=== PATIENT | male | born 1955 | race Caucasian/White ===

== ENCOUNTER 2021-05-08 05:31 | Observation (INO) | payer MEDICARE, SELFPAY ==
[2021-05-08] VITALS (17 sets, daily range): BP systolic 129–190; BP diastolic 74–165; PULSE 83–108; RESP 14–23; TEMP 36.4–37.1; O2SAT 94–100; BMI 31.1
--- NOTE | ~2021-05-08 | XR_ITS ---
EXAMINATION: XR femur LT min 2V DATE: 05/08/2021 18:49 INDICATION: Left thigh pain. TECHNIQUE: 2 views of left femur on 4 radiographs were obtained. COMPARISON: CT abdomen and pelvis 05/08/2021 FINDINGS: Bone alignment is normal. No fracture. There are changes of posterior fusion procedure in l umbosacral spine. There is mild left hip osteoarthritis. Left knee joint space is normal. No left kne e joint effusion. Partially visualized is a left internal ureteral stent. IMPRESSION: 1. Mild left hip osteoarthritis. Reviewed, dictated and finalized at location A.
--- NOTE | ~2021-05-08 | XR_ITS ---
EXAMINATION: XR retrograde pyelo w/stent LT DATE: 05/08/2021 14:06 INDICATION: Left internal ureteral stent placement TECHNIQUE: Fluoroscopic images from a left internal ureteral stent placement are submitted for shivam wharton 19 seconds of fluoroscopy time. 7 fluoroscopic images. FINDINGS: There is a left double-J internal ureteral stent projecting in expected position, with proximal [place] loop at the level of the renal pelvis and distal loop in the pelvis within the bladder lumen. IMPRESSION: 1. Left internal ureteral stent placement. Please refer to real-time procedural findings for detail s. Reviewed, dictated and finalized at location A. IMPRESSION: 1. Left internal ureteral stent placement. Please refer to real-time procedur al findings for details.
--- NOTE | ~2021-05-08 | CT_ITS ---
EXAMINATION: CT abdomen pelvis wo con DATE: 05/08/2021 06:56 INDICATION: Flank pain TECHNIQUE: Computed tomography (CT) of the abdomen and pelvis was performed without intravenous contr ast. The dose-length product was 724.00 mGy-cm. Automated exposure control and iterative reconstructi on technique were employed. COMPARISON: CT dated 04/24/2007. FINDINGS: There is dependent atelectasis in the right lung. No significant pleural or pericardial eff usion. Elevated right diaphragm. Heart size normal. Mild atherosclerosis. No lymphadenopathy. There i s a 6 mm left UPJ stone with mild hydronephrosis. Gallbladder is mildly distended. The liver, spleen, pancreas, adrenal glands are unremarkable. No right renal stones. Nonobstructive bowel gas pattern. There are bilateral fat-containing inguinal hernias. Colonic diverticulosis without evidence for dive rticulitis. No free air or free fluid. There is bladder wall thickening. There is enlarged prostate g land. There are surgical fusion changes of the lumbar spine. No acute osseous abnormality. IMPRESSION: 1. Left UPJ stone measuring 6 mm with mild hydronephrosis. 2: Bladder wall thickening which may be due to relative obstruction from enlarged prostate gland or c ystitis. Reviewed, dictated and finalized at location A. IMPRESSION: 1. Left UPJ stone measuring 6 mm with mild hydronephrosis. 2: Bladder wall thickening which may be due to relative obstruction from enlarg ed prostate gland or cystitis.
--- NOTE | ~2021-05-08 | XR_ITS ---
EXAMINATION: XR abdomen/kub 1V DATE: 05/08/2021 16:34 INDICATION: Left ureteral stone. TECHNIQUE: A supine view of the abdomen was obtained. COMPARISON: CT abdomen and pelvis 05/08/2021, abdomen radiograph 05/08/2021 FINDINGS: There are no dilated loops of bowel. There are phleboliths in the pelvis. There is a left i nternal ureteral stent in expected position. There are changes of anterior and posterior fusion proce dures in lumbosacral spine. A bone stimulator is noted. IMPRESSION: 1. Left internal ureteral stent in expected position. No visible urolithiasis. Reviewed, dictated and finalized at location A.
--- NOTE | ~2021-05-08 | XR_ITS ---
XR abdomen/kub 1V 05/08/2021 13:04 INDICATION: Left renal stone TECHNIQUE: KUB COMPARISON: CT dated 05/08/2021 FINDINGS: Bowel gas pattern is normal. There is no evidence of free air, mass, organomegaly, ascites or obstruction. There is a stone in the left upper abdomen, likely at the UPJ. There are surgical ch anges of the lower lumbar spine and pelvis, consistent with fusion. Spinal stimulator leads are prese nt. The bones appear intact. There is a large amount of retained fecal material in the colon. IMPRESSION: 1: Calcification in the left upper abdomen, likely UPJ stone.. Reviewed, dictated and finalized at location A.
--- NOTE | 2021-05-08 05:46 | ED.ABDPAIN ---
HPI - Abdominal Pain General Chief Complaint: Abdominal Pain <Octavio Mcleod MD - Last Filed: 05/08/21 15:54> Stated Complaint: left abd pain/flank pain <Octavio Mcleod MD - Last Filed: 05/08/21 15:54> Time Seen by Provider: 05/08/21 05:39 <Octavio Mcleod MD - Last Filed: 05/08/21 15:54> History of Present Illness HPI narrative: Left flank pain since yesterday. variable intensity. Associated with dry heaves. This is a new problem. Additioanlly c/o pain in the left thingh. No swelling, trauma, rash. <Octavio Mcleod MD - Last Filed: 05/08/21 15:54> Related Data Allergies/Adverse Reactions: Allergies Allergy/AdvReac Type Severity Reaction Status Date / Time No Known Allergies Allergy Unverified 05/08/21 05:35 <Octavio Mcleod MD - Last Filed: 05/08/21 15:54> Review of Systems Review of Systems: All systems reviewed & are unremarkable except as noted in HPI and below <Octavio Mcleod MD - Last Filed: 05/08/21 15:54> Constitutional: Constitutional: Denies chills and Denies fever(s) <Octavio Mcleod MD - Last Filed: 05/08/21 15:54> ENT: Reports system reviewed and no additional complaints, except as documented <Octavio Mcleod MD - Last Filed: 05/08/21 15:54> Cardiovascular: Cardiovascular: Denies chest pain <Octavio Mcleod MD - Last Filed: 05/08/21 15:54> Respiratory: Respiratory: Denies dyspnea <Octavio Mcleod MD - Last Filed: 05/08/21 15:54> Gastrointestinal: Gastrointestinal: Reports as per HPI <Octavio Mcleod MD - Last Filed: 05/08/21 15:54> Genitourinary: Genitourinary: Denies hematuria and Denies dysuria <Octavio Mcleod MD - Last Filed: 05/08/21 15:54> Musculoskeletal: Musculoskeletal: Reports as per HPI <Octavio Mcleod MD - Last Filed: 05/08/21 15:54> Neurologic: Denies numbness and Denies weakness <Octavio Mcleod MD - Last Filed: 05/08/21 15:54> [facility] Past Medical History Medical History: Medical History (Updated 05/08/21 @ 11:00 by Ernie Avendano MD) Allergic rhinitis, unspecified Anxiety Elevated liver function tests Essential hypertension Gastroesophageal reflux disease without esophagitis Hypothyroidism, unspecified Lumbar radiculopathy Mild intermittent asthma without complication Mixed hyperlipidemia Neck pain, chronic <Octavio Mcleod MD - Last Filed: 05/08/21 15:54> Family History Family History: Family History Father Family history of coronary artery disease Mother Family history of coronary artery disease <Octavio Mcleod MD - Last Filed: 05/08/21 15:54> Social History Social History: Social History Smoking status: Former smoker Second hand tobacco smoke exposure: No Alcohol intake: current Substance use: never Substance use type: does not use Gender identity (if verbalized by the patient): Male Sexual Orientation (if Verbalized by the Patient): Straight or Heterosexual Spiritual care concerns: No Agree to blood products: No <Octavio Mcleod MD - Last Filed: 05/08/21 15:54> Exam Const: General: no acute distress and alert <Octavio Mcleod MD - Last Filed: 05/08/21 15:54> Orientation/consciousness: patient oriented x3 <Octavio Mcleod MD - Last Filed: 05/08/21 15:54> HENMT: Head: normal to inspection <Octavio Mcleod MD - Last Filed: 05/08/21 15:54> Neck: Neck: normal visual inspection <Octavio Mcleod MD - Last Filed: 05/08/21 15:54> Resp: Effort & Inspection: normal respiratory effort <Octavio Mcleod MD - Last Filed: 05/08/21 15:54> Auscultation: clear to auscultation bilaterally, no rales, no rhonchi and no wheezes <Octavio Mcleod MD - Last Filed: 05/08/21 15:54> Cardio: Jugular venous distension: no JVD <Octavio Mcleod MD - Last Filed: 05/08/21 15:54> Rate: regular
[2021-05-08 05:52] LABS: Basophils Absolute Auto 0.1 K/mm3 (0.0-0.1); Basophils Percent Auto 0.4 % (0.2-1.2); Eosinophils Absolute Auto 0.1 K/mm3 (0-0.3); Eosinophils Percent Auto 0.6 % (0-4.4); Hematocrit 44.5 % (42.0-52.0); Hemoglobin 14.5 g/dL (14.0-18.0); Immature Granulocyte Absolute 0.05 K/mm3 (0.00-0.031); Immature Granulocyte Percent A 0.4 % (0-0.5); Lymphocytes Absolute Auto 1.39 K/mm3 (0.9-3.2); Lymphocytes Percent Auto 11.4 % (18.3-44.2); Mean Corpuscular HGB Conc 32.6 g/dl (32-36); Mean Corpuscular Volume 91.9 fl (80-100); Mean Platelet Volume 9.2 fl (7.4-10.4); Monocytes Absolute Auto 0.4 K/mm3 (0.1-0.6); Monocytes Percent Auto 3.4 % (2.6-8.5); Neutrophils Absolute Auto 10.2 K/mm3 (1.3-6.7); Neutrophils Percent Auto 83.8 % (45.5-73.1); Platelet Count Result 216 k/mm3 (150-375); Red Blood Count 4.84 M/mm3 (4.6-6.20); Red Cell Distribution Width 12.6 % (11.5-14.5); White Blood Count 12.2 K/mm3 (4.5-10.0)
[2021-05-08 06:03] LABS: Anion Gap 10 mmol/L (8-16); Blood Urea Nitrogen 14 mg/dL (9-20); Calcium 9.6 mg/dL (8.4-10.2); Carbon Dioxide 25 mmol/L (22-30); Chloride 101 mmol/L (98-107); Estimated CRCL calculation 66 ml/min; Estimated Glomerular Filt Rate > 60; Glucose 139 mg/dL (65-110); Potassium 3.8 mmol/L (3.4-5.0); Sodium 136 mmol/L (137-145)
[2021-05-08] MEDS: fentaNYL CITRATE INJ (*CRX) 100 MCG/2 ML VIAL 50 MCG IV PUSH (06:59)
[2021-05-08] MEDS: ONDANSETRON INJ 4 MG/2 ML VIAL IV PUSH (06:59)
[2021-05-08] MEDS: MORPHINE SULFATE (*CRX) 4 MG/ML INJ IV PUSH (08:19)
[2021-05-08 08:27] LABS: Add Urine Microscopic? YES; Appearance Urine Cloudy (Clear); Bacteria Urine 2+ /hpf; Bilirubin Urine Negative (Negative); Blood Urine 3+ (Negative); Color Urine Amber (Yellow); Glucose Urine UA Negative (Negative); Ketones Urine Trace mg/dL (Negative); Leukocyte Esterase Ur Negative LEU/UL (Negative); Mucus Urine Heavy /lpf; Nitrate Urine Negative (Negative); Protein Urine 2+ mg/dL (Negative); RBC Urine >75 /hpf (0-2); Specific Grav Ur 1.021 (1.001-1.035)
[2021-05-08] MEDS: PROMETHAZINE HCL 25 MG/ML AMPUL 12.5 MG IV PUSH (10:04)
--- NOTE | 2021-05-08 12:53 | PM.IMHP ---
H&P: HPI History of Present Illness Date/Time: 05/08/21 12:53 Chief Complaint: Left flank pain Narrative: Mr. Haines is a pleasant 65M who presents to the [place] ER for evaluation of left-sided flank pain since last night associated with nausea and vomiting. He underwent CT abdomen and pelvis which demonstrated a 6mm obstructing left UPJ stone. He denies a history of nephrolithiasis. He denies hematuria or voiding symptoms. He reports some left leg pain which I have alerted the ER physician to. Review of Systems Review of Systems: All systems reviewed & are unremarkable except as noted in HPI and below Constitutional: Constitutional: Denies chills, Denies fever(s), Denies frequent falls and Denies headache(s) Eyes: Eyes: Reports as per HPI ENT: Reports system reviewed and no additional complaints, except as documented Cardiovascular: Cardiovascular: Reports no additional cardiovascular complaints Respiratory: Respiratory: Denies pain on inspiration, Denies pain with cough, Denies dyspnea and Denies wheezing Gastrointestinal: Gastrointestinal: Reports abdominal pain, Denies bloating, Denies change in stool character and Denies constipation Genitourinary: Genitourinary: Denies urinary frequency, Denies urinary incontinence and Denies urinary urgency Musculoskeletal: Musculoskeletal: Reports no additional musculoskeletal complaints Integumentary/Breasts: Skin/Breast: Reports system reviewed and no additional complaints, except as docu Neurologic: Reports system reviewed and no additional complaints, except as documented Psychiatric: Psychiatric: Reports no additional psychiatric complaints Endocrine: Endocrine: Reports no additional endocrine complaints Hematologic/Lymphatic: Hematologic/Lymphatic: Reports no additional hematologic/lymphatic complaints Allergic/Immunologic: Allergic/Immunologic: Reports no additional allergic/immunologic complaints [facility] Past Medical History Medical History (Updated 05/08/21 @ 11:00 by Ernie Avendano MD) Allergic rhinitis, unspecified Anxiety Elevated liver function tests Essential hypertension Gastroesophageal reflux disease without esophagitis Hypothyroidism, unspecified Lumbar radiculopathy Mild intermittent asthma without complication Mixed hyperlipidemia Neck pain, chronic Family History Family History Father Family history of coronary artery disease Mother Family history of coronary artery disease Social History Social History Smoking status: Former smoker Second hand tobacco smoke exposure: No Alcohol intake: current Substance use: never Substance use type: does not use Gender identity (if verbalized by the patient): Male Sexual Orientation (if Verbalized by the Patient): Straight or Heterosexual Spiritual care concerns: No Agree to blood products: No Meds Home Medications and Allergies Home Medications Medication Instructions Recorded Confirmed Type fluticasone 100 mcg-salmeterol 50 1 puff INHALATION Q12H #60 each 09/16/19 11/05/19 Rx mcg/dose blistr powdr for inhalation buspirone 5 mg tablet See Rx Instructions .ROUTE 02/03/20 Rx .COMPLEX #60 tablet gabapentin 300 mg capsule See Rx Instructions .ROUTE 03/30/20 Rx .COMPLEX #90 cap esomeprazole magnesium 40 mg See Rx Instructions .ROUTE 08/10/20 Rx capsule,delayed release .COMPLEX #90 cap cyclobenzaprine 10 mg tablet 10 mg PO TID #30 tablet 11/11/20 11/11/20 Rx lisinopril 40 mg tablet 40 mg PO DAILY #90 tablet 12/10/20 Rx montelukast 10 mg tablet See Rx Instructions .ROUTE 01/14/21 Rx .COMPLEX #90 tablet nortriptyline 25 mg capsule See Rx Instructions .ROUTE 02/19/21 Rx .COMPLEX #90 cap albuterol sulfate 90 mcg/actuation 1 puff INHALATION Q4H PRN #8.5 gm 03/08/21 Rx aerosol inhaler pravastatin 20 mg tablet 20 mg PO DAILY #90 tablet 04/02
--- NOTE | 2021-05-08 13:05 | WPDHPUPDATE1 ---
History and Physical Update Update Date/Time: 05/08/21 13:05 History and Physical has been reviewed, including an updated exam of the patient. There are NO changes in the patient's condition. Risks, benefits, and alternatives have been discussed and questions answered. Patient agrees to proceed with procedure. To OR for cystoscopy and left ureteral stent placement.
--- NOTE | 2021-05-08 13:30 | WPDANESEPPF ---
Anes - Initial Pre Proc Eval Procedure: Operation Date: 05/08/21 14:00 Proposed Procedures p Cysto, RPG, Stone Ext, Stent Placement(Left) - Abdifatah Brooks MD Date/Time: 05/08/21 13:30 Surgeon: Abdifatah Brooks MD Pre Op Diagnosis: Kidney Stone Patient Data Age: 65 Gender: M Height: 1.8 m Weight: 103 kg Last Vital Signs Temp 36.6 C 05/08/21 05:32 Pulse 100 05/08/21 13:00 Resp 16 05/08/21 13:00 BP 190/94 H 05/08/21 13:00 Pulse Ox 97 05/08/21 13:00 Allergies Allergy/AdvReac Type Severity Reaction Status Date / Time No Known Allergies Allergy Unverified 05/08/21 05:35 Home Medications Medication Instructions Recorded Confirmed Type fluticasone 100 mcg-salmeterol 50 1 puff INHALATION Q12H #60 each 09/16/19 11/05/19 Rx mcg/dose blistr powdr for inhalation gabapentin 300 mg capsule See Rx Instructions .ROUTE 03/30/20 Rx .COMPLEX #90 cap esomeprazole magnesium 40 mg See Rx Instructions .ROUTE 08/10/20 Rx capsule,delayed release .COMPLEX #90 cap cyclobenzaprine 10 mg tablet 10 mg PO TID #30 tablet 11/11/20 11/11/20 Rx lisinopril 40 mg tablet 40 mg PO DAILY #90 tablet 12/10/20 Rx montelukast 10 mg tablet See Rx Instructions .ROUTE 01/14/21 Rx .COMPLEX #90 tablet nortriptyline 25 mg capsule See Rx Instructions .ROUTE 02/19/21 Rx .COMPLEX #90 cap albuterol sulfate 90 mcg/actuation 1 puff INHALATION Q4H PRN #8.5 gm 03/08/21 Rx aerosol inhaler pravastatin 20 mg tablet 20 mg PO DAILY #90 tablet 04/29/21 Rx levothyroxine 50 mcg tablet See Rx Instructions .ROUTE 05/02/21 Rx .COMPLEX #90 tablet metoprolol succinate 50 mg 100 mg PO DAILY #180 tablet 05/02/21 Rx tablet,extended release 24 hr Laboratory Tests 05/08/21 05/08/21 05/08/21 05:43 05:43 08:10 WBC 12.2 K/mm3 H K/mm3 (4.5-10.0) RBC 4.84 M/mm3 M/mm3 (4.6-6.20) Hgb 14.5 g/dL g/dL (14.0-18.0) Hct 44.5 % % (42.0-52.0) MCV 91.9 fl fl (80-100) MCH 30.0 pg pg (26-34) MCHC 32.6 g/dl g/dl (32-36) RDW 12.6 % % (11.5-14.5) Plt Count 216 k/mm3 k/mm3 (150-375) MPV 9.2 fl fl (7.4-10.4) Immature Gran % (Auto) 0.4 % % (0-0.5) Neut % (Auto) 83.8 % H % (45.5-73.1) Lymph % (Auto) 11.4 % L % (18.3-44.2) Mckenzie % (Auto) 3.4 % % (2.6-8.5) Eos % (Auto) 0.6 % % (0-4.4) Baso % (Auto) 0.4 % % (0.2-1.2) Lymph # (Auto) 1.39 K/mm3 K/mm3 (0.9-3.2) Mckenzie # (Auto) 0.4 K/mm3 K/mm3 (0.1-0.6) Eos # (Auto) 0.1 K/mm3 K/mm3 (0-0.3) Baso # (Auto) 0.1 K/mm3 K/mm3 (0.0-0.1) Abs Immat Gran (auto) 0.05 K/mm3 H K/mm3 (0.00-0.031) Absolute Neuts (auto) 10.2 K/mm3 H K/mm3 (1.3-6.7) Absolute Nucleated RBC 0.0 K/mm3 K/mm3 (0.0-0.012) Nucleated RBC % 0.0 % % (0.0-0.2) Sodium 136 mmol/L L mmol/L (137-145) Potassium 3.8 mmol/L mmol/L (3.4-5.0) Chloride 101 mmol/L mmol/L (98-107) Carbon Dioxide 25 mmol/L mmol/L (22-30) Anion Gap 10 mmol/L mmol/L (8-16) BUN 14 mg/dL mg/dL (9-20) Creatinine 1.20 mg/dL mg/dL (0.7-1.3) Estim Creat Clear Calc 66 ml/min ml/min Estimated GFR > 60 (59 - ) Glucose 139 mg/dL H mg/dL (65-110) Calcium 9.6 mg/dL mg/dL (8.4-10.2) Urine Color Shima (Yellow) Urine Appearance Cloudy H (Clear) Urine pH 5.0 (5.0-9.0) Ur Specific Fate 1.021 (1.001-1.035) Urine Protein 2+ mg/dL H mg/dL (Negative) Urine Glucose (UA) Negative mg/dL mg/dL (Negative) Urine Ketones Trace mg/dL mg/dL (Negative) Ur Blood (Man) 3+ H (Negative) Urine Nitrate Negative (Negative) Urine Bilirubin Negative (Negative) Urin
[2021-05-08] MEDS: LIDOCAINE HCL 2% GEL UROJET 10 ML PKG MUCOUS MEM (13:55)
--- NOTE | 2021-05-08 14:04 | W.PM.PROC2 ---
Procedure Note - Detailed Date of Procedure 05/08/21 Pre-op Diagnosis Left UPJ Kidney Stone Post-op Diagnosis same Procedure Performed 1. Cystoscopy and left ureteral stent placement. 2. Left retrograde pyelogram 3. Fluoroscopy with interpretation of images, less than 1 hour. Surgeon Abdifatah Brooks MD Anesthesia general Indications Mr. Haines is a 65 year old man who developed left flank pain yesterday and presented to the [place] ER. He was found to have a left UPJ stone on CT which is radiopaque on KUB. He consents to cystoscopy and stent placement as his pain has been persistent with nausea and vomiting. Findings 1. No bladder masses, lesions or stones. 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 2. Obstructive enlarged prostate with median lobe. 3. Left retrograde with minimal hydronephrosis. 4. Appropriate placement of left ureteral stent. Flocculent urine, no obvious purulence however with cystitis cystica, I am concerned for presence of infection. Urine culture sent after placement of stent. Description of Procedure After a discussion of the benefits, risks and alternatives, the patient offered informed written consent. He was taken to the operating room and placed on the table in the supine position. Anesthesia was induced and he was prepped and draped in the standard sterile fashion. A call to order was performed and it was confirmed that he had received ceftriaxone in the ER this morning. He was transferred to the dorsal lithotomy position and prepped and draped in the standard sterile fashion. A rigid cystoscope was placed atraumatically and pancystoscopy performed with the aforementioned findings. The left ureteral orifice was approached with the scope and a 5F open-ended catheter used to approach the orifice. A glidewire was advanced into the orifice and the 5F advanced 3 cm into the distal ureter. A retrograde pyelogram was performed with the aforementioned findings. The wire was replaced and the 5F catheter removed. Over the wire a 6F variable length stent was advanced to the renal pelvis. The wire was removed forming an excellent curl in the renal pelvis. The bladder was drained. A hydronephrotic drip was noted and the urine was flocculent. I sent a urine culture from the cystoscope. The cystoscope was removed atraumatically and the patient cleaned and dried of prep solution, transferred to the supine position and awoken from anesthesia without incident. Implants 6F variable length stent Estimated Blood Loss 3 Drains Yes (6F variable length ureteral left stent) Pathology other (urine for culture) Complications No immediate complications Condition stable Disposition PACU
[2021-05-08] MEDS: LACTATED RINGERS 1,000 ML 30 ML IV CONT (14:05)
--- NOTE | 2021-05-08 14:41 | SUR.PHASEI ---
PT VOIDED BLOODY URINE WITH A FEW CLOTS. DR WEEKS AT BEDSIDE. PT BLEEDING FROM PENIS.
--- NOTE | 2021-05-08 15:07 | SUR.PHASEI ---
1450; DR WEEKS PLACED A 20FR 3WAY CATHETER WITHOUT DIFFICULTY. NORMAL SALINE CBI WIDE OPEN STARTED. 1505; PT AWAKE AND ALERT. URINE NOW PINK, CLEAR WITH CBI WIDE OPEN. FAMILY AT BEDSIDE. PT STATES HE IS FEELING MUCH BETTER NOW. TALKATIVE WITH FAMILYL
[2021-05-08] MEDS: HYDROcodone/acetaminophen (*CRX) 5-325 MG TABLET 1 TAB PO (17:15)
[2021-05-08] MEDS: DEXTROSE 5%/LACTATED RINGERS 1,000 ML 125 ML IV CONT (19:06)
[2021-05-08] MEDS: DOCUSATE SODIUM 100 MG CAPSULE PO (19:07)
[2021-05-08] MEDS: GABAPENTIN 300 MG CAPSULE BY MOUTH (21:17)
[2021-05-08] MEDS: MONTELUKAST SODIUM 10 MG TABLET PO (21:17)
[2021-05-09] VITALS (10 sets, daily range): BP systolic 121–171; BP diastolic 66–106; PULSE 84–101; RESP 14–20; TEMP 36.1–37.2; O2SAT 94–100
[2021-05-09] MEDS: HYDROcodone/acetaminophen (*CRX) 5-325 MG TABLET 1 TAB PO ×3 (05:10→17:54)
[2021-05-09] MEDS: LEVOTHYROXINE SODIUM 50 MCG TABLET BY MOUTH (05:43)
[2021-05-09 06:09] LABS: Hematocrit 40.4 % (42.0-52.0); Hemoglobin 13.4 g/dL (14.0-18.0)
[2021-05-09 06:18] LABS: Anion Gap 5 mmol/L (8-16); Blood Urea Nitrogen 13 mg/dL (9-20); Calcium 9.5 mg/dL (8.4-10.2); Carbon Dioxide 25 mmol/L (22-30); Chloride 108 mmol/L (98-107); Estimated CRCL calculation 61 ml/min; Estimated Glomerular Filt Rate 55; Glucose 110 mg/dL (65-110); Potassium 3.5 mmol/L (3.4-5.0); Sodium 138 mmol/L (137-145)
[2021-05-09] MEDS: FLUTICASONE/SALMETEROL 45-21 MCG INHALER 1 PUFF 2 PUFF INHALATION ×2 (08:25→21:19)
--- NOTE | 2021-05-09 08:46 | PM.CNOR ---
Assessment and Plan Assessment and plan (1) Left thigh pain: Code(s): M79.652 - Pain in left thigh Status: Resolved Assessment and Plan: 65-year-old male with resolved left thigh pain. I believe this was referred from the ureteral calculi causing femoral nerve irritation. Thank you for the consultation. History of Present Illness HPI Consult date: 05/09/21 Consult reason: other ( Left thigh pain) Chief complaint: Kidney Stone Narrative: 65-year-old male who is admitted through the emergency room yesterday with ureteral calculi. He had stent placement yesterday. When his pain was at its most intense from the stone in his belly and retroperitoneal area, he had excruciating pain in the anterior portion of the left mid thigh. That has resolved with the stone pain having resolved. History is significant for having had lower lumbar fusion 20 years ago. He does get intermittent pain below the knee on that side but never like he had yesterday in the thigh. [facility] Past Medical History Medical History (Updated 05/09/21 @ 08:49 by Ed Black MD) Allergic rhinitis, unspecified Anxiety Elevated liver function tests Essential hypertension Gastroesophageal reflux disease without esophagitis Hypothyroidism, unspecified Left thigh pain Lumbar radiculopathy Mild intermittent asthma without complication Mixed hyperlipidemia Neck pain, chronic Family History Family History Father Family history of coronary artery disease Mother Family history of coronary artery disease Social History Social History Smoking status: Former smoker Tobacco type: cigarettes Second hand tobacco smoke exposure: No Alcohol intake: never Substance use: never Substance use type: does not use Gender identity (if verbalized by the patient): Male Sexual Orientation (if Verbalized by the Patient): Straight or Heterosexual Spiritual care concerns: No Agree to blood products: No Meds Home Medications and Allergies Home Medications Medication Instructions Recorded Confirmed Type fluticasone 100 mcg-salmeterol 50 1 puff INHALATION Q12H #60 each 09/16/19 11/05/19 Rx mcg/dose blistr powdr for inhalation gabapentin 300 mg capsule See Rx Instructions .ROUTE 03/30/20 Rx .COMPLEX #90 cap esomeprazole magnesium 40 mg See Rx Instructions .ROUTE 11/09/20 Rx capsule,delayed release .COMPLEX #90 cap cyclobenzaprine 10 mg tablet 10 mg PO TID #30 tablet 11/11/20 11/11/20 Rx lisinopril 40 mg tablet 40 mg PO DAILY #90 tablet 12/10/20 Rx montelukast 10 mg tablet See Rx Instructions .ROUTE 01/14/21 Rx .COMPLEX #90 tablet nortriptyline 25 mg capsule See Rx Instructions .ROUTE 02/19/21 Rx .COMPLEX #90 cap albuterol sulfate 90 mcg/actuation 1 puff INHALATION Q4H PRN #8.5 gm 03/08/21 Rx aerosol inhaler pravastatin 20 mg tablet 20 mg PO DAILY #90 tablet 04/29/21 Rx levothyroxine 50 mcg tablet See Rx Instructions .ROUTE 05/02/21 Rx .COMPLEX #90 tablet metoprolol succinate 50 mg 100 mg PO DAILY #180 tablet 05/02/21 Rx tablet,extended release 24 hr Allergies Allergy/AdvReac Type Severity Reaction Status Date / Time No Known Allergies Allergy Unverified 05/08/21 05:35 Vital Signs Vital Signs - 24 hr 05/08/21 09:00 05/08/21 11:00 05/08/21 13:00 Temperature Pulse Rate 97 102 H 100 Respiratory Rate 14 16 16 Blood Pressure 153/88 H 159/90 H 190/94 H Pulse Oximetry 98 99 97 05/08/21 14:05 05/08/21 14:20 05/08/21 14:35 Temperature 97.5 F L Pulse Rate 104 H 98 100 Respiratory Rate 18 18 20 Blood Pressure 132/84 159/100 H 157/99 H Pulse Oximetry 95 100 97 05/08/21 14:50 05/08/21 15:15 05/08/21 15:30 Temperature Pulse Rate 97 100 98 Respiratory Rate 16 18 16 Blood Pressure 149/94 H 157/99 H 152/95 H Pulse Oximetry 97 97 97 05/08/21 15:45 05/08/21 16:2
--- NOTE | 2021-05-09 09:00 | WPDANESPN ---
Anes - Prog Note Post-Op Date/Time: 05/09/21 09:00 Cardiovascular status: normal Respiratory status: normal Airway patency: baseline Mental status: baseline Post-Op hydration status: normal Vital Signs: Last Vital Signs Temp 36.7 C 05/09/21 08:00 Pulse 100 05/09/21 08:00 Resp 18 05/09/21 08:00 BP 124/74 05/09/21 08:00 Pulse Ox 95 05/09/21 08:00 Pain Score (VAS): 0/10 I/O: Intake & Output 05/08/21 05/09/21 05/09/21 23:59 07:59 15:59 Intake Total 200 1200 Output Total 275 600 Balance -75 600 Laboratory Tests 05/09/21 05:36 05/09/21 05:36 05/09/21 05/09/21 05:36 05:36 Hgb 13.4 L Hct 40.4 L Sodium 138 Potassium 3.5 Chloride 108 H Carbon Dioxide 25 Anion Gap 5 L BUN 13 Creatinine 1.30 Estim Creat Clear Calc 61 Estimated GFR 55 L Glucose 110 Calcium 9.5 Post-procedural complaints: none Patient Feedback: Patient satisfied with anesthetic care.
[2021-05-09] MEDS: PRAVASTATIN SODIUM 20 MG TABLET PO (10:00)
[2021-05-09] MEDS: lisinopriL 20 MG TABLET 40 MG PO (10:00)
[2021-05-09] MEDS: NORTRIPTYLINE HCL 25 MG CAPSULE BY MOUTH (10:00)
[2021-05-09] MEDS: METOPROLOL SUCCINATE EXT REL 50 MG TABCR 100 MG PO (10:00)
[2021-05-09] MEDS: ENOXAPARIN 40 MG/0.4 ML SYRINGE SUB-Q (10:01)
--- NOTE | 2021-05-09 12:36 | WPDUROPN2 ---
Progress Note: A&P Additional Plan 65M with left UPJ stone s/p ureteral stent placement, abnormal urothelium noted, cultures pending. 1. Patient uncomfortable with discharging at this time due to pending culture and stranguria. Agree to monitor overnight. 2. Continue Rocephin, culture pending. 3. We will plan for left ureteroscopy and laser lithotripsy with stent exchange and bladder biopsy in the near future as outpatient. Likely home tomorrow pending clinical course. Time Spent With Patient Time with patient: 15 - 25 minutes Subjective Subjective Date/Time Seen: 05/09/21 12:36 NAEO, catheter removed recently and patient has voided but reports stranguria. AF-VSS. Ortho eval cleared for DC. Exam Narrative: NAD, A&Ox3 RRR EWOB S/NT/ND 2+ distal pulses Objective Data Vital Signs Vital Signs: Vital Signs - 24 hr 05/08/21 13:00 05/08/21 14:05 05/08/21 14:20 Temperature 97.5 F L Pulse Rate 100 104 H 98 Respiratory Rate 16 18 18 Blood Pressure 190/94 H 132/84 159/100 H Pulse Oximetry 97 95 100 05/08/21 14:35 05/08/21 14:50 05/08/21 15:15 Temperature Pulse Rate 100 97 100 Respiratory Rate 20 16 18 Blood Pressure 157/99 H 149/94 H 157/99 H Pulse Oximetry 97 97 97 05/08/21 15:30 05/08/21 15:45 05/08/21 16:20 Temperature 98.5 F Pulse Rate 98 97 100 Respiratory Rate 16 16 16 Blood Pressure 152/95 H 149/94 H 150/91 H Pulse Oximetry 97 97 96 05/08/21 16:35 05/08/21 16:55 05/08/21 17:55 Temperature 98.8 F 98.7 F 98.5 F Pulse Rate 104 H 101 H 104 H Respiratory Rate 18 16 18 Blood Pressure 157/93 H 171/87 H 129/74 Pulse Oximetry 97 98 94 05/08/21 21:18 05/09/21 01:24 05/09/21 05:46 Temperature 98.3 F 97.0 F L 97.0 F L Pulse Rate 108 H 90 98 Respiratory Rate 18 16 20 Blood Pressure 136/74 126/66 133/77 Pulse Oximetry 96 95 94 05/09/21 08:00 05/09/21 10:00 Temperature 98.1 F Pulse Rate 100 98 Respiratory Rate 18 Blood Pressure 124/74 Pulse Oximetry 95 Intake/Output Intake/Output: Intake & Output 05/06/21 05/07/21 05/08/21 05/09/21 23:59 23:59 23:59 23:59 Intake Total 550 1560 Output Total 4025 600 Balance -3475 960 Meds/Results Medications: Active Medications Generic Name Dose Route Start Last Admin Trade Name Freq PRN Reason Stop Dose Admin Hydrocodone Bitart/Acetaminophen 1 tab 05/08/21 16:01 05/09/21 10:11 Hydrocodone/Acetaminophen (*Crx) 5-325 Mg Tablet PO 1 tab Q6H PRN Administration Pain Rated 1-6 Albuterol 1 puff 05/08/21 16:01 Albuterol Sulfate (*Sp) Aerosol 1 Puff INHALATION Q4HRT PRN shortness of breath or wheezing Docusate Sodium 100 mg 05/08/21 17:00 05/08/21 19:07 Docusate Sodium 100 Mg Capsule PO 100 mg BID CURT Administration Enoxaparin Sodium 40 mg 05/09/21 09:00 05/09/21 10:01 Enoxaparin 40 Mg/0.4 Ml Syringe SUB-Q 40 mg DAILY CURT Administration Gabapentin 300 mg 05/08/21 21:00 05/08/21 21:17 Gabapentin 300 Mg Capsule BY MOUTH 300 mg HS CURT Administration Levothyroxine Sodium 50 mcg 05/09/21 06:30 05/09/21 05:43 Levothyroxine Sodium 50 Mcg Tablet BY MOUTH 50 mcg DAILY@0630 CURT Administration Lisinopril 40 mg 05/09/21 09:00 05/09/21 10:00 Lisinopril 20 Mg Tablet PO 40 mg DAILY CURT Administration Metoprolol Succinate 100 mg 05/09/21 09:00 05/09/21 10:00 Metoprolol Succinate Ext Rel 50 Mg Tabcr PO 100 mg DAILY CURT Administration Montelukast Sodium 10 mg 05/08/21 21:00 05/08/21 21:17 Montelukast Sodium 10 Mg Tablet PO 10 mg HS CURT Administration Morphine Sulfate 2 mg 05/08/21 16:01 Morphine Sulfate (*Crx) 2 Mg/Ml Inj IV PUSH Q2H PRN Pain Rated 7-10 Naloxone HCl 0.1 mg 05/08/21 16:01 Naloxone Hcl 0.4 Mg/Ml Vial IV PUSH Q2M PRN Opiate Reversal Nortriptyline HCl 25 mg 05/09/21 09:00 05/09/21 10:00 Nortriptyline Hcl 25 Mg Capsule BY MOUTH 25 mg DAILY CURT Administration Ondansetron HCl
[2021-05-09 14:57] LABS: Hematocrit 40.2 % (42.0-52.0); Hemoglobin 13.4 g/dL (14.0-18.0); Mean Corpuscular HGB Conc 33.3 g/dl (32-36); Mean Corpuscular Hemoglobin 30.2 pg (26-34); Mean Corpuscular Volume 90.7 fl (80-100); Mean Platelet Volume 9.4 fl (7.4-10.4); Platelet Count Result 222 k/mm3 (150-375); Red Blood Count 4.43 M/mm3 (4.6-6.20); Red Cell Distribution Width 13.1 % (11.5-14.5); White Blood Count 8.3 K/mm3 (4.5-10.0)
[2021-05-09 15:04] LABS: Anion Gap 7 mmol/L (8-16); Blood Urea Nitrogen 15 mg/dL (9-20); Calcium 9.9 mg/dL (8.4-10.2); Carbon Dioxide 25 mmol/L (22-30); Chloride 103 mmol/L (98-107); Estimated CRCL calculation 61 ml/min; Estimated Glomerular Filt Rate 55; Glucose 116 mg/dL (65-110); Potassium 3.9 mmol/L (3.4-5.0); Sodium 135 mmol/L (137-145)
[2021-05-09] MEDS: DOCUSATE SODIUM 100 MG CAPSULE PO (17:55)
[2021-05-09] MEDS: GABAPENTIN 300 MG CAPSULE BY MOUTH (20:16)
[2021-05-09] MEDS: MONTELUKAST SODIUM 10 MG TABLET PO (20:16)
[2021-05-09] MEDS: MORPHINE SULFATE (*CRX) 2 MG/ML INJ IV PUSH (21:38)
[2021-05-10] MEDS: HYDROcodone/acetaminophen (*CRX) 5-325 MG TABLET 1 TAB PO ×3 (03:01→13:59)
[2021-05-10] MEDS: LEVOTHYROXINE SODIUM 50 MCG TABLET BY MOUTH (05:59)
[2021-05-10 06:00] VITALS: BP 139/92; PULSE 75; RESP 16; TEMP 36.9; O2SAT 99
--- NOTE | 2021-05-10 06:56 | WPDUROPN2 ---
Progress Note: A&P Assessment and Plan (1) Ureteral calculi: Code(s): N20.1 - Calculus of ureter Status: Acute Assessment and Plan: 65M with left UPJ stone who presents to ER with one day of pain with nausea and vomiting. He elects for left ureterall stent placement. 1. To operating room for cystoscopy and left ureteral stent placement. We have discussed risks and benefits including inability to place stent, postoperative pain, stent discomfort and sepsis. The patient understands and would like to proceed. He understands that the stent is a temporary measure until he can undergo definitive stone management either by ESWL or URS/LL. 2. Rocephin 2g IV. 3. If patient recovers well after his procedure he may discharge from PACU. 4. ER physician alerted to patient's report of leg pain which has resolved by the patient's report. Roland Brooks MD [facility] Additional Plan 65M with left UPJ stone s/p ureteral stent placement, abnormal urothelium noted, cultures pending. 1. Patient uncomfortable with discharging at this time due to pending culture and stranguria. Agree to monitor overnight. 2. Continue Rocephin, culture pending. 3. We will plan for left ureteroscopy and laser lithotripsy with stent exchange and bladder biopsy in the near future as outpatient. Likely home tomorrow pending clinical course. 05/10/2021 Tolerating stent but now c/o beasley pain. Will schedule left URS with stone extraction and bladder biopsy for next week. Re-asses for discharge later today. Subjective Subjective Date/Time Seen: 05/10/21 06:56 Tolerating stent but now c/o beasley pain. Tolerating diet. Review of Systems Cardiovascular: Cardiovascular: Denies chest pain, Denies lightheadedness, Denies palpitations and Denies dyspnea Respiratory: Respiratory: Denies dyspnea Gastrointestinal: Gastrointestinal: Denies diarrhea, Denies nausea and Denies vomiting Genitourinary: Genitourinary: Denies hematuria and Denies dysuria Endocrine: Endocrine: Denies palpitations Exam Const: General: no acute distress Resp: Effort & Inspection: normal respiratory effort GI: Inspection: non-distended GI Palp: No abdominal tenderness and No Guarding due to palpation present (GI) Auscultation: normal bowel sounds Objective Data Vital Signs Vital Signs: Vital Signs - 24 hr 05/09/21 08:00 05/09/21 10:00 05/09/21 13:46 Temperature 98.1 F 98.1 F Pulse Rate 100 98 101 H Respiratory Rate 18 16 Blood Pressure 124/74 128/70 Pulse Oximetry 95 96 05/09/21 17:46 05/09/21 19:33 05/09/21 20:00 Temperature 98.9 F Pulse Rate 98 84 Respiratory Rate 18 14 Blood Pressure 171/106 H 151/91 H Pulse Oximetry 100 100 05/09/21 21:21 05/09/21 22:00 05/10/21 06:00 Temperature 98.3 F 98.5 F Pulse Rate 84 86 75 Respiratory Rate 14 16 16 Blood Pressure 121/85 139/92 H Pulse Oximetry 97 99 Intake/Output Intake/Output: Intake & Output 05/07/21 05/08/21 05/09/21 05/10/21 23:59 23:59 23:59 23:59 Intake Total 550 2140 Output Total 4025 1100 Balance -3475 1040 Meds/Results Medications: Active Medications Generic Name Dose Route Start Last Admin Trade Name Freq PRN Reason Stop Dose Admin Hydrocodone Bitart/Acetaminophen 1 tab 05/08/21 16:01 05/10/21 03:01 Hydrocodone/Acetaminophen (*Crx) 5-325 Mg Tablet PO 1 tab Q6H PRN Administration Pain Rated 1-6 Albuterol 1 puff 05/08/21 16:01 Albuterol Sulfate (*Sp) Aerosol 1 Puff INHALATION Q4HRT PRN shortness of breath or wheezing Docusate Sodium 100 mg 05/08/21 17:00 05/09/21 18:39 Docusate Sodium 100 Mg Capsule PO Not Given BID CURT Enoxaparin Sodium 40 mg 05/09/21 09:00 05/09/21 10:01 Enoxaparin 40 Mg/0.4 Ml Syringe SUB-Q 40 mg DAILY CURT Administration Gabapentin 300 mg 05/08/21 21:00 05/09/21 20:16 Gabapentin 300 Mg Capsule BY MOUTH 300 mg HS CURT Administration Ceftriaxone Sodium 2
[2021-05-10] MEDS: FLUTICASONE/SALMETEROL 45-21 MCG INHALER 1 PUFF 2 PUFF INHALATION (08:25)
[2021-05-10 08:39] VITALS: PULSE 86
[2021-05-10] MEDS: PRAVASTATIN SODIUM 20 MG TABLET PO (08:39)
[2021-05-10] MEDS: ENOXAPARIN 40 MG/0.4 ML SYRINGE SUB-Q (08:39)
[2021-05-10] MEDS: NORTRIPTYLINE HCL 25 MG CAPSULE BY MOUTH (08:39)
[2021-05-10] MEDS: lisinopriL 20 MG TABLET 40 MG PO (08:39)
[2021-05-10] MEDS: METOPROLOL SUCCINATE EXT REL 50 MG TABCR 100 MG PO (08:39)
[2021-05-10] MEDS: DOCUSATE SODIUM 100 MG CAPSULE PO (08:42)
[2021-05-10 12:50] LABS: Hematocrit 40.4 % (42.0-52.0); Hemoglobin 13.3 g/dL (14.0-18.0); Mean Corpuscular HGB Conc 32.9 g/dl (32-36); Mean Corpuscular Hemoglobin 30.2 pg (26-34); Mean Corpuscular Volume 91.8 fl (80-100); Mean Platelet Volume 8.9 fl (7.4-10.4); Platelet Count Result 205 k/mm3 (150-375); Red Cell Distribution Width 12.9 % (11.5-14.5); White Blood Count 7.8 K/mm3 (4.5-10.0)
[2021-05-10 13:14] LABS: Anion Gap 6 mmol/L (8-16); Blood Urea Nitrogen 16 mg/dL (9-20); Carbon Dioxide 26 mmol/L (22-30); Chloride 108 mmol/L (98-107); Estimated CRCL calculation 66 ml/min; Estimated Glomerular Filt Rate > 60; Glucose 98 mg/dL (65-110); Potassium 3.7 mmol/L (3.4-5.0); Sodium 140 mmol/L (137-145)
--- NOTE | 2021-05-10 14:19 | PM.DS ---
DS: Admitting Diagnosis Admitting Diagnosis left ureteral stone DS: Discharge Diagnosis Discharge Diagnosis (1) Ureteral calculi: Code(s): N20.1 - Calculus of ureter Status: Acute (2) Left thigh pain: Code(s): M79.652 - Pain in left thigh Status: Resolved Assessment and Plan: Unrelated to calculi DS: Summary Hospital Course Hospital Course: See note below Time Spent with Patient Time attestation: The patient was admitted on 05/08/2021 for a 6mm left UPJ stone found on CT in the ER with c/o left flank pain. His urine was sent for culture, but came back negative. Dr. Brooks admitted him to our service and placed a stent on 05/08/2021 in addition to a cystoscopy and left retrograde pyelogram. He was then observed overnight and yesterday d/t ongoing pain that was unresolved by stent placement. He was given pain medications which do help, but he states he has trouble getting up to use the bathroom by himself as it is so painful when he urinates. He also states he has some hematuria in the urine, but otherwise denies frequency or urgency to urinate. He is otherwise stable and doing well. He c/o ongoing right leg/thigh pain which is unrelated to his stone, I would recommend he see his PCP as he states this has been ongoing for a while. He will go home today with pain medications and antibiotics, resume all other home medications, resume a regular diet, activity as tolerated. Exam Resp: Effort & Inspection: normal respiratory effort Cardio: Rate: regular rate GI: GI Palp: Yes Soft to palpation and No Tenderness to palpation present (GI) : General: Yes CVA tenderness on the left Extrem: General: no edema DS: Data Data Completed and Pending Labs on day of discharge: Labs from last 24 hours 05/10/21 05/10/21 05/09/21 12:45 12:45 14:20 WBC 7.8 RBC 4.40 L Hgb 13.3 L Hct 40.4 L MCV 91.8 MCH 30.2 MCHC 32.9 RDW 12.9 Plt Count 205 MPV 8.9 Sodium 140 135 L Potassium 3.7 3.9 Chloride 108 H 103 Carbon Dioxide 26 25 Anion Gap 6 L 7 L BUN 16 15 Creatinine 1.20 1.30 Estim Creat Clear Calc 66 61 Estimated GFR > 60 55 L Glucose 98 116 H Calcium 10.0 9.9 05/09/21 14:20 WBC 8.3 RBC 4.43 L Hgb 13.4 L Hct 40.2 L MCV 90.7 MCH 30.2 MCHC 33.3 RDW 13.1 Plt Count 222 MPV 9.4 Sodium Potassium Chloride Carbon Dioxide Anion Gap BUN Creatinine Estim Creat Clear Calc Estimated GFR Glucose Calcium Discharge Plan Discharge Attending physician on discharge: Abdifatah Brooks Consulting providers: Ed Black Discharging Clinician: Abdifatah Brooks Anticipated Discharge Date/Time: 05/09/21 12:08 Patient Disposition: Home, Self-Care Activity: may shower and unlimited Diet: as tolerated Discharge Instructions: Follow up for definitive stone management and bladder biopsy with Dr. Soni, patient will be contacted with date and time of his next procedure. Expect blood in the urine, burning with urination, pain in your abdomen and back with activity and at rest, espcecially with urination. Those are normal symptoms that patient's experience with a stent in place. Patient Instructions: Antibiotic Form, Pain Management (DC), Ureteral Stent Placement (DC), Lithotripsy (DC) Stand Alone Forms: General Discharge Information Follow-up/Referrals: Liliana Giron MD [Primary Care Provider] - Discharge Medications: New cephalexin 500 mg capsule 500 mg PO Q8H 4 Days Qty: 12 RF: 0 hydrocodone-acetaminophen 5-325 mg tablet 1 tablet PO Q8H PRN (Reason: pain) 3 Days Qty: 9 RF: 0 Continued cyclobenzaprine 10 mg tablet 10 mg PO TID Qty: 30 RF: 0 fluticasone propion-salmeterol [Wixela Inhub] 100-50 mcg/dose blister with device 1 puff INHALATION Q12H Qty: 60 RF: 6 gabapentin 300 mg capsule See Rx Instructions .ROUTE .COMPLEX Qty: 90 RF: 1 esomeprazole ma
== END 2021-05-10 14:53 | disposition home or self-care (01) ==
LOC: ANHED 06:22 → ANHSURGERY 10:54 → ANH2MED 16:19
PROVIDERS: Admitting Provider Urology; Emergency Provider Emergency Medicine; PCP Family Medicine; Visit Provider Urology
PROC: (CPT 52352; principal; 2021-05-08 14:00)
DX: N13.2 Hydronephrosis with renal and ureteral calculous obstruction (principal); N30.80 Other cystitis without hematuria; N40.0 Benign prostatic hyperplasia without lower urinary tract symptoms; M79.652 Pain in left thigh; I10 Essential (primary) hypertension; K21.9 Gastro-esophageal reflux disease without esophagitis; E03.9 Hypothyroidism, unspecified; J45.20 Mild intermittent asthma, uncomplicated; E78.2 Mixed hyperlipidemia; F41.9 Anxiety disorder, unspecified; Z87.891 Personal history of nicotine dependence; Z79.51 Long term (current) use of inhaled steroids
CPT/HCPCS: 52332; 36415; 73552; 74018; 74176; 74420; 80048; 81001; 85014; 85018; 85025; 85027; 87086; 94640; 96365; 96375; 99285; A9270; C1758; C1769; C2617; G0378; J0696; J1650; J2250; J2270; J2405; J2550; J2704; J3010; J7030; J7120; J7121; Q9966

== ENCOUNTER 2023-02-19 20:38 | Emergency (ER) | payer MEDICARE, SELFPAY ==
[2023-02-19 20:54] VITALS: BP 154/107; PULSE 64; RESP 14; TEMP 36.9; O2SAT 100
--- NOTE | 2023-02-19 22:29 | ED.GENADULT ---
HPI - General Adult General Chief complaint: Skin/Abscess/Foreign Body Stated complaint: hives Time Seen by Provider: 02/19/23 22:01 Source: patient Mode of arrival: ambulatory Limitations: no limitations History of Present Illness HPI narrative: This is a 67-year-old male who presents the ED with chief complaint of rash beginning today. States he has had something like this in the past but is unsure of any causes. He has no known allergic triggers. Denies any new animals or pets. Denies any new lotions or soaps denies any new medications. He states he has been outside a lot lately, is unsure if he has been in any poison luisa. States the rash is quite itchy. Reports it started on his side and now has spread to the arms and chest. Denies any shortness of breath, lip swelling, tongue swelling. Related Data Allergies Allergy/AdvReac Type Severity Reaction Status Date / Time No Known Allergies Allergy Verified 02/19/23 20:38 Review of Systems Review of Systems: CONSTITUTIONAL: Denies fever, chills, or sweats. EYES: Denies visual changes, redness, or discharge. ENT: Denies rhinorrhea, congestion, sore throat, or otalgia. CARDIOVASCULAR: Denies chest pain, palpitations, or edema. RESPIRATORY: Denies cough or dyspnea. GASTROINTESTINAL: Denies abdominal pain, nausea, vomiting, or diarrhea. GENITOURINARY: Denies dysuria or hematuria. SKIN: See HPI MUSCULOSKELETAL: Denies back pain, joint pain, or myalgia. NEUROLOGIC: Denies headache, numbness, dizziness, or weakness. PSYCHIATRIC: Denies anxiety or depression. [facility] Past Medical History Medical History Allergic rhinitis, unspecified Anxiety Elevated liver function tests Essential hypertension Gastroesophageal reflux disease without esophagitis Hx of renal calculi Hypothyroidism, unspecified Left thigh pain Lumbar radiculopathy Mild intermittent asthma without complication Mixed hyperlipidemia Neck pain, chronic Family History Family History Father Family history of coronary artery disease Mother Family history of coronary artery disease Social History Social History (Updated 09/07/22 @ 14:53 by Marleen Hill CMA) Smoking status: Former smoker Tobacco type: cigarettes Second hand tobacco smoke exposure: No Alcohol intake: never Substance use: never Substance use type: does not use Lack of Transportation: No Lack of Food: Never True Current Housing: I Have Housing Concerned About Future Housing: No Difficulty Paying Gas/Electric Bills: No Difficulty Paying for Meds: No Currently Unemployed: No Education: Associate Degree Difficulty w/ Childcare or Family Care: No Living arrangements: alone Occupation/Education: retired Gender identity (if verbalized by the patient): Male Sexual Orientation (if Verbalized by the Patient): Straight or Heterosexual Spiritual care concerns: No Agree to blood products: No Exam Narrative: GENERAL: Well-appearing, well-nourished, and in no acute distress. HEAD: Normocephalic, atraumatic. EYES: PERRLA and EOMI. ENT: Nares clear, no rhinorrhea or epistaxis. Mucous membranes moist. Oropharynx without tonsillar hypertrophy exudate or other lesions. No lip swelling or tongue swelling. Airway intact. NECK: Supple. No adenopathy or masses. CHEST: No respiratory distress. Clear to auscultation. No wheezes rales or rhonchi HEART: Regular rate and rhythm. No murmur heard. Normal peripheral pulses. ABDOMEN: Soft, nontender, nondistended, normal active bowel sounds. MSK: Normal range of motion. No edema. SKIN: Urticarial rash noted to the head, bilateral upper extremities and torso. No pallor or jaundice. NEURO: Alert and oriented x3. No focal deficits. PSYCH: Normal mood and affect. Course Vital Signs Vital signs: Vital Signs Temperature 98.5 F 0521
[2023-02-19] MEDS: predniSONE 20 MG TABLET 40 MG PO (22:35)
[2023-02-19] MEDS: hydrOXYzine HCL 25 MG TABLET PO (22:36)
--- NOTE | 2023-02-19 22:44 | PC.NURSE ---
1 prednisone tablet dropped per pt, this rn overrode dose. Pt got total of 40mg, 2 tabs of prednisone.
== END 2023-02-19 22:43 | disposition home or self-care (01) ==
PROVIDERS: Emergency Provider Physician Assistant; PCP Family Medicine
DX: L23.9 Allergic contact dermatitis, unspecified cause (principal); I10 Essential (primary) hypertension; E03.9 Hypothyroidism, unspecified; E78.2 Mixed hyperlipidemia; J45.20 Mild intermittent asthma, uncomplicated; K21.9 Gastro-esophageal reflux disease without esophagitis; Z87.442 Personal history of urinary calculi; Z87.891 Personal history of nicotine dependence
CPT/HCPCS: 99283; A9270; J7512

== ENCOUNTER → 2023-05-17 12:52 | Outpatient (CLI) | payer MEDICARE, SELFPAY ==
--- NOTE | ~2023-05-17 | XR_ITS ---
EXAMINATION: XR chest 2V DATE: 05/17/2023 13:31 INDICATION: Cough, unspecified TECHNIQUE: PA and lateral views of the chest are obtained. COMPARISON: 06/07/2016 FINDINGS: The lungs are free of acute opacities. No pleural effusion or pneumothorax. The cardiomedia stinal silhouette is normal. There is mild thoracic spondylosis. There are partially imaged changes o f cervical fusion. An electronic device projects posteriorly in the subcutaneous tissues of the right flank pain. IMPRESSION: 1. No acute cardiopulmonary abnormality. Reviewed, dictated and finalized at location B.
== END ==
PROVIDERS: PCP Family Medicine; Visit Provider Physician Assistant
DX: R05.9 Cough, unspecified (principal)
CPT/HCPCS: 71046

== ENCOUNTER 2024-03-10 15:20 | Emergency (ER) | payer MEDICARE, SELFPAY ==
--- NOTE | ~2024-03-10 | XR_ITS ---
Clinical Indication: Cough PA and lateral views of the chest: Comparison: 05/17/2023 Findings: The lungs are clear, without evidence of focal consolidation or pleural effusion. Cardiome diastinal silhouette is within normal limits. Bones and soft tissues are unremarkable. Impression: Normal chest. Reviewed, dictated and finalized at location . Impression: Normal chest.
[2024-03-10 15:36] VITALS: BP 152/89; PULSE 70; RESP 20; TEMP 36.5; O2SAT 100
[2024-03-10] MEDS: ALBUTEROL SULFATE NEB 2.5 MG/3 ML INH INHALATION (16:04)
[2024-03-10] MEDS: IPRATROPIUM BR 0.02% INH SOLN 0.5 MG/2.5 ML VIAL INHALATION (16:05)
[2024-03-10] MEDS: methylPREDNISolone SOD SUCC 125 MG VIAL IM (16:07)
--- NOTE | 2024-03-10 17:05 | ED.GENADULT ---
HPI - General Adult General Chief complaint: Upper Respiratory Infection Stated complaint: Cough,Shortness of Breath Source: patient Mode of arrival: ambulatory Limitations: no limitations History of Present Illness HPI narrative: patient presents for evaluation of a cough for the last 5 weeks. Cough this productive of clear /yellow sputum. Denies any shortness of breath except during significant coughing episodes. Occasionally he does get some pleuritic chest pain. He denies any fever, chills, nausea, vomiting, diarrhea. No recent sick contacts to his knowledge. He states he has never received a formal diagnosis of asthma or COPD but has a nebulizer machine at home, albuterol inhaler and advair at home. He has tried some OTC cough medication without improvement. He does not smoke cigarettes or marijuana. Related Data Allergies Allergy/AdvReac Type Severity Reaction Status Date / Time No Known Allergies Allergy Verified 03/10/24 15:24 Review of Systems Review of Systems: CONSTITUTIONAL: Denies fever, chills, or sweats. EYES: Denies visual changes, redness, or discharge. ENT: Denies rhinorrhea, congestion, sore throat, or otalgia. CARDIOVASCULAR: Reports pleuritic chest pain. Denies chest pain otherwise. Denies palpitations, or edema. RESPIRATORY: Reports productive cough and SOB, only during significant coughing episodes. GASTROINTESTINAL: Denies abdominal pain, nausea, vomiting, or diarrhea. GENITOURINARY: Denies dysuria or hematuria. SKIN: Denies rash or itching. MUSCULOSKELETAL: Denies back pain, joint pain, or myalgia. NEUROLOGIC: Denies headache, numbness, dizziness, or weakness. PSYCHIATRIC: Denies anxiety or depression. [facility] Past Medical History Medical History Allergic rhinitis, unspecified Anxiety Elevated liver function tests Essential hypertension Gastroesophageal reflux disease without esophagitis Hx of renal calculi Hypothyroidism, unspecified Left thigh pain Lumbar radiculopathy Mild intermittent asthma without complication Mixed hyperlipidemia Neck pain, chronic Surgical History Surgical History H/O foot surgery History of lumbar spinal fusion S/P cervical spinal fusion Family History Family History Father Family history of coronary artery disease Mother Family history of coronary artery disease Social History Social History Smoking status: Never smoker Tobacco type: cigarettes Second hand tobacco smoke exposure: No Alcohol intake: never Substance use: never Substance use type: does not use Lack of Transportation: No Lack of Food: Never True Current Housing: I Have Housing Concerned About Future Housing: No Difficulty Paying Gas/Electric Bills: No Difficulty Paying for Meds: No Currently Unemployed: No Education: Associate Degree Difficulty w/ Childcare or Family Care: No Living arrangements: alone Occupation/Education: retired Gender identity (if verbalized by the patient): Male Sexual Orientation (if Verbalized by the Patient): Straight or Heterosexual Spiritual care concerns: No Agree to blood products: No Exam Narrative: GENERAL: Well-appearing, well-nourished, and in no acute distress. HEAD: Normocephalic, atraumatic. EYES: PERRLA and EOMI. ENT: Nares clear, no rhinorrhea or epistaxis. Mucous membranes moist. Oropharynx without tonsillar hypertrophy exudate or other lesions. Bilateral TMs pearly lundberg nonbulging NECK: Supple. No adenopathy or masses. No carotid bruits or JVD CHEST: Mild wheezing noted in lung driscoll bilaterally. Cough present on exam. HEART: Regular rate and rhythm. No murmur heard. Normal peripheral pulses. ABDOMEN: Soft, nontender, nondistended, normal active bowel
== END 2024-03-10 17:00 | disposition home or self-care (01) ==
PROVIDERS: Emergency Provider Nurse Practitioner; PCP Family Medicine
DX: B34.9 Viral infection, unspecified (principal); I10 Essential (primary) hypertension; K21.9 Gastro-esophageal reflux disease without esophagitis; E03.9 Hypothyroidism, unspecified; E78.2 Mixed hyperlipidemia
CPT/HCPCS: 71046; 94640; 96372; 99213; G0463; J2919

== ENCOUNTER 2024-10-15 01:00 | Day surgery (SDC) | payer MEDICARE, SELFPAY ==
[2024-10-01 09:40] VITALS: BMI 31.6
[2024-10-15 08:40] VITALS: BP 160/103; PULSE 65; RESP 20; TEMP 35.9; O2SAT 100; BMI 31.1
--- NOTE | 2024-10-15 08:47 | P.PNAN_ITS ---
Anes - Initial Pre Proc Eval Procedure: Operation Date: 10/15/24 10:00 Proposed Procedures p Colonoscopy - Connor Seals MD Date/Time: 10/15/24 08:47 Surgeon: Connor Seals MD Pre Op Diagnosis: fecal abnormalities Patient Data Age: 69 Gender: M Height: 1.78 m Weight: 100 kg Allergies Allergy/AdvReac Type Severity Reaction Status Date / Time No Known Allergies Allergy Verified 10/15/24 08:46 Home Medications ?Medication ?Instructions ?Recorded ?Confirmed ?Type lidocaine 4 % topical patch 1 patch topical DAILY PRN pain #15 10/22/21 10/01/24 Rx ea pravastatin 20 mg tablet 20 mg PO DAILY #90 tabs 04/04/22 10/01/24 Rx nebulizers #1 ea 04/19/23 04/22/24 Rx famotidine 40 mg tablet 40 mg PO DAILY #90 tabs 09/05/23 10/01/24 Rx tadalafil 5 mg tablet (Cialis) 5 mg PO DAILY PRN sexual activity 10/26/23 10/01/24 Rx #10 tabs levothyroxine 50 mcg tablet See Rx Instructions .Route 12/21/23 10/01/24 Rx .COMPLEX #90 tabs montelukast 10 mg tablet See Rx Instructions .Route 01/24/24 10/01/24 Rx .COMPLEX #90 tabs albuterol sulfate 2.5 mg/3 mL 2.5 mg (3 mL) inhalation Q4-6H PRN 04/22/24 10/01/24 Rx (0.083 %) solution for nebulization shortness of breath or wheezing #90 mL albuterol sulfate 90 mcg/actuation 1 puff inhalation Q4H PRN 04/22/24 10/01/24 Rx aerosol inhaler shortness of breath or wheezing #8.5 grams esomeprazole magnesium 40 mg See Rx Instructions .Route 04/22/24 10/01/24 Rx capsule,delayed release .COMPLEX #90 caps metoprolol succinate 100 mg 100 mg PO BID #180 tabs 05/04/24 10/01/24 Rx tablet,extended release 24 hr budesonide-formoterol HFA 160 2 puff inhalation Q12H #10.2 grams 06/16/24 10/01/24 Rx mcg-4.5 mcg/actuation aerosol inhaler (Symbicort) gabapentin 300 mg capsule See Rx Instructions .Route 06/17/24 10/01/24 Rx .COMPLEX #90 caps losartan 50 mg tablet 50 mg PO DAILY #90 tabs 07/14/24 10/01/24 Rx cyclobenzaprine 10 mg tablet 10 mg PO TID PRN muscle spasm #90 07/15/24 10/01/24 Rx tabs ipratropium bromide 0.02 % 2.5 ml inhalation Q6H PRN 08/02/24 10/01/24 Rx solution for inhalation shortness of breath or wheezing #62.5 mL tamsulosin 0.4 mg capsule (Flomax) 0.4 mg PO DAILY #90 caps 09/02/24 10/01/24 Rx Patient hx anesthesia problems: none Family hx anesthesia problems: none Results Review: All pre-operative results and documents have been reviewed as part of the pre- operative evaluation. FOR[facility] Past Medical History Medical History Hx of renal calculi Left thigh pain Allergic rhinitis, unspecified Anxiety Elevated liver function tests Essential hypertension Gastroesophageal reflux disease without esophagitis Hypothyroidism, unspecified Lumbar radiculopathy Mild intermittent asthma without complication Mixed hyperlipidemia Neck pain, chronic Surgical History Surgical History S/P cervical spinal fusion H/O foot surgery History of lumbar spinal fusion Family History Family History Father Family history of coronary artery disease Mother Family history of coronary artery disease Social History Social History (Updated 10/15/24 @ 08:47 by Amado Banks MD) Smoking packs per day: 1 Smoking cigarettes per day: 20.0 Years smoked: 12 Smoking pack-years: 12.00 Smoking status: Former smoker Tobacco type: cigarettes Second hand tobacco smoke exposure: No Alcohol intake: never Substance use: former Substance use type: marijuana Other substance usage details: QUIT 20 YEARS AGO Lack of Transportation: No Lack of Food: Never True Current Housing: I Have Housing Concerned About Future Housing: No Difficulty Paying Gas/Electric Bills: No Difficulty Paying for Meds: No Currently Unemployed: No Education: Associate Degree Difficulty w/ Childcare or Family Care: No Living arrangements: alone Occupation/Education: retired Gender identity (if verbalized by the patient): Male Sexual Orientation (if Verbalized by the Patient): Straight or Heterosexual Spiritual care concerns: No Agree to blood products: No Anes - Eval Final PreProcedure Day of Procedure 10/15/24 08:47 Patient weight: obese Heart: regular rate and rhythm Lungs: clear to auscultation Airway: Mallampati scale class II Neurological: alert and oriented Last oral intake: >/= 8 hours ASA classification: III Emergent: no Anesthetic plan: proceed Anesthesia type and monitoring: general GIVS and standard monitoring Results Review: All pre-operative results and documents have been reviewed as part of the pre- operative evaluation. Informed Consent: The patient's anesthetic plan and its attendant risks and benefits were discussed with the patient/family/POA. Questions were solicited and answers provided to the satisfaction of the patient/family/POA.
[2024-10-15] MEDS: LACTATED RINGERS 1,000 ML 150 ML IV CONT (08:58)
--- NOTE | 2024-10-15 09:08 | PM.IMHP ---
H&P: HPI History of Present Illness Date/Time: 10/15/24 09:08 Chief Complaint: screening colonoscopy Narrative: the patient's last screening colonoscopy was 10 years ago, reportedly normal.. He was found Cologuard positive. There are no GI symptoms and there is no family history of colorectal cancer. Review of Systems Review of Systems: All systems reviewed & are unremarkable except as noted in HPI and below PMFSH Past Medical History Medical History Hx of renal calculi Left thigh pain Allergic rhinitis, unspecified Anxiety Elevated liver function tests Essential hypertension Gastroesophageal reflux disease without esophagitis Hypothyroidism, unspecified Lumbar radiculopathy Mild intermittent asthma without complication Mixed hyperlipidemia Neck pain, chronic Surgical History Surgical History S/P cervical spinal fusion H/O foot surgery History of lumbar spinal fusion Family History Family History Father Family history of coronary artery disease Mother Family history of coronary artery disease Social History Social History (Updated 10/15/24 @ 08:47 by Amado Banks MD) Smoking packs per day: 1 Smoking cigarettes per day: 20.0 Years smoked: 12 Smoking pack-years: 12.00 Smoking status: Former smoker Tobacco type: cigarettes Second hand tobacco smoke exposure: No Alcohol intake: never Substance use: former Substance use type: marijuana Other substance usage details: QUIT 20 YEARS AGO Lack of Transportation: No Lack of Food: Never True Current Housing: I Have Housing Concerned About Future Housing: No Difficulty Paying Gas/Electric Bills: No Difficulty Paying for Meds: No Currently Unemployed: No Education: Associate Degree Difficulty w/ Childcare or Family Care: No Living arrangements: alone Occupation/Education: retired Gender identity (if verbalized by the patient): Male Sexual Orientation (if Verbalized by the Patient): Straight or Heterosexual Spiritual care concerns: No Agree to blood products: No Meds Home Medications and Allergies Home Medications ?Medication ?Instructions ?Recorded ?Confirmed ?Type lidocaine 4 % topical patch 1 patch topical DAILY PRN pain #15 10/22/21 10/15/24 Rx ea pravastatin 20 mg tablet 20 mg PO DAILY #90 tabs 04/04/22 10/15/24 Rx nebulizers #1 ea 04/19/23 04/22/24 Rx famotidine 40 mg tablet 40 mg PO DAILY #90 tabs 09/05/23 10/01/24 Rx tadalafil 5 mg tablet (Cialis) 5 mg PO DAILY PRN sexual activity 10/26/23 10/15/24 Rx #10 tabs levothyroxine 50 mcg tablet See Rx Instructions .Route 12/21/23 10/15/24 Rx .COMPLEX #90 tabs montelukast 10 mg tablet See Rx Instructions .Route 01/24/24 10/15/24 Rx .COMPLEX #90 tabs albuterol sulfate 2.5 mg/3 mL 2.5 mg (3 mL) inhalation Q4-6H PRN 04/22/24 10/15/24 Rx (0.083 %) solution for nebulization shortness of breath or wheezing #90 mL albuterol sulfate 90 mcg/actuation 1 puff inhalation Q4H PRN 04/22/24 10/15/24 Rx aerosol inhaler shortness of breath or wheezing #8.5 grams esomeprazole magnesium 40 mg See Rx Instructions .Route 04/22/24 10/15/24 Rx capsule,delayed release .COMPLEX #90 caps metoprolol succinate 100 mg 100 mg PO BID #180 tabs 05/04/24 10/15/24 Rx tablet,extended release 24 hr budesonide-formoterol HFA 160 2 puff inhalation Q12H #10.2 grams 06/16/24 10/15/24 Rx mcg-4.5 mcg/actuation aerosol inhaler (Symbicort) gabapentin 300 mg capsule See Rx Instructions .Route 06/17/24 10/15/24 Rx .COMPLEX #90 caps losartan 50 mg tablet 50 mg PO DAILY #90 tabs 07/14/24 10/15/24 Rx cyclobenzaprine 10 mg tablet 10 mg PO TID PRN muscle spasm #90 07/15/24 10/15/24 Rx tabs ipratropium bromide 0.02 % 2.5 ml inhalation Q6H PRN 08/02/24 10/15/24 Rx solution for inhalation shortness of breath or wheezing #62.5 mL tamsulosin 0.4 mg capsule (Flomax) 0.4 mg PO DAILY #90 caps 09/02/24 10/15/24 Rx Allergies Allergy/AdvReac Type Severity Reaction Status Date / Time No Known Allergies Allergy Verified 10/15/24 08:46 Vital Signs Vital Signs - 24 hr 10/15/24 08:40 Temperature 96.7 F L Pulse Rate 65 Respiratory Rate 20 Blood Pressure 160/103 H Pulse Oximetry 100 Oxygen Delivery Room Air Exam Const: General: cooperative and healthy appearing Resp: Effort & Inspection: normal respiratory effort and able to speak in complete sentences Auscultation: clear to auscultation bilaterally Cardio: Rate: regular rate Rhythm: regular rhythm GI: Inspection: normal to inspection GI Palp: No No hepatosplenomegaly present Auscultation: normal bowel sounds Rectal Exam: deferred Skin: General skin exam: normal color Psych: Appearance: grossly normal Mental Status: mental status grossly normal Assessment and Plan Assessment and plan (1) Positive colorectal cancer screening using Cologuard test: Code(s): R19.5 - Other fecal abnormalities Status: Acute Assessment and Plan: The patient is deemed a good candidate for the procedure. Consent signed. Will proceed.
--- NOTE | 2024-10-15 09:25 | SUR.PREOP ---
Patient stated they haven't taken any blood pressure medication today and is anxious. was notified of patients blood pressure.
[2024-10-15 10:19] VITALS: BP 99/68; PULSE 66; RESP 15; O2SAT 95
[2024-10-15 10:29] VITALS: BP 100/70; PULSE 63; RESP 14; O2SAT 94
[2024-10-15 10:39] VITALS: BP 118/72; PULSE 57; RESP 14; O2SAT 94
== END 2024-10-15 11:00 | disposition home or self-care (01) ==
PROVIDERS: PCP Family Medicine; Referring Provider Student in an Organized Health Care Education/Training Program; Visit Provider Internal Medicine Gastroenterology
PROC: 0DJD8ZZ Inspection of Lower Intestinal Tract, Via Natural or Artificial Opening Endoscopic (ICD-10-PCS; CPT 45378; principal; 2024-10-15 10:00)
DX: D12.3 Benign neoplasm of transverse colon (principal); D12.5 Benign neoplasm of sigmoid colon; D12.0 Benign neoplasm of cecum; K63.5 Polyp of colon; K64.8 Other hemorrhoids; K52.832 Lymphocytic colitis; K57.30 Diverticulosis of large intestine without perforation or abscess without bleeding; I10 Essential (primary) hypertension; E03.9 Hypothyroidism, unspecified; E78.2 Mixed hyperlipidemia; K21.9 Gastro-esophageal reflux disease without esophagitis; J45.909 Unspecified asthma, uncomplicated; F41.9 Anxiety disorder, unspecified; G89.29 Other chronic pain; M54.2 Cervicalgia; E66.9 Obesity, unspecified; Z68.31 Body mass index [BMI] 31.0-31.9, adult; Z79.51 Long term (current) use of inhaled steroids; Z98.890 Other specified postprocedural states; Z98.1 Arthrodesis status; Z87.891 Personal history of nicotine dependence; Z87.442 Personal history of urinary calculi; Z82.49 Family history of ischemic heart disease and other diseases of the circulatory system
CPT/HCPCS: 45385; 45380; 88305; J2003; J2704; J7120